=== PATIENT | male | born 1970 | race Caucasian/White ===

== ENCOUNTER 2021-05-24 11:41 | Day surgery (SDC) | payer BC ==
[~2021-05-24] VITALS: Ht 185.4 cm; Wt 104.6 kg
[~2021-05-24 11:41] MED LIST: ATOR20 PO; Fluocinonide15 GM TOP; IBUP200; LEVSOD75 PO; MULTI-VITAMIN1 EAC2 PO; Viagra100 MG PO; ZYRTEC10 M2 PO
--- NOTE | 2021-05-24 15:31 | NUR ---
Discharge instructions reviewed with patient. Patient verbalizes understanding. Copy given to patient to take home. Discharged via wheelchair to private car for ride home.
--- NOTE | 2021-05-28 14:19 | NUR ---
05/28/21 1419 Dasha Dai VERIFICATIONS: EDIT CHART.
== END 2021-05-24 15:35 | disposition home or self-care (01) ==
LOC: ORSCMMR 11:41
PROVIDERS: Surgery
PROC: 0YU54JZ Supplement Right Inguinal Region with Synthetic Substitute, Percutaneous Endoscopic Approach (ICD-10-PCS; principal; 2021-05-24 13:00)
PROC: 8E0W4CZ Robotic Assisted Procedure of Trunk Region, Percutaneous Endoscopic Approach (ICD-10-PCS; principal; 2021-05-24 13:00)
DX: K40.90 Unilateral inguinal hernia, without obstruction or gangrene, not specified as recurrent (principal); K21.9 Gastro-esophageal reflux disease without esophagitis; E03.9 Hypothyroidism, unspecified; E78.5 Hyperlipidemia, unspecified; Z79.899 Other long term (current) drug therapy
CPT/HCPCS: 49650; S2900; A9270; J0690; J1100; J1885; J2250; J2405; J2704; J3010; J7120

== ENCOUNTER 2021-07-19 11:37 | Day surgery (SDC) | payer BC ==
[~2021-07-19] VITALS: Ht 185.4 cm; Wt 102.8 kg
== END 2021-07-19 14:25 | disposition home or self-care (01) ==
LOC: ORSCSDS 11:37
PROVIDERS: Internal Medicine Gastroenterology
PROC: 0DBH8ZX Excision of Cecum, Via Natural or Artificial Opening Endoscopic, Diagnostic (ICD-10-PCS; principal; 2021-07-19 13:00)
DX: Z12.11 Encounter for screening for malignant neoplasm of colon (principal); K52.9 Noninfective gastroenteritis and colitis, unspecified; Z79.899 Other long term (current) drug therapy
CPT/HCPCS: 88305; J2704; J7120

== ENCOUNTER 2023-10-02 11:43 | Day surgery (SDC) | payer BC ==
[~2023-10-02] VITALS: Ht 185.4 cm; Wt 100.3 kg
[~2023-10-02 11:43] MED LIST changes: +Lactated Ringer's 1,000 ML IV ONE; +propofoL 50 ML IV ONE
[2023-10-02] MEDS ORDERED: FOLI1 (11:59)
[2023-10-02] MEDS ORDERED: MESALAMINE (11:59)
[2023-10-02] MEDS ORDERED: Lactated Ringer's 1,000 ML IV ONE (13:00)
[2023-10-02 14:36] VITALS: BP 121/84
== END 2023-10-02 14:40 | disposition home or self-care (01) ==
LOC: ORSCSDS 11:43
PROVIDERS: Internal Medicine Gastroenterology
PROC: 0DBN8ZX Excision of Sigmoid Colon, Via Natural or Artificial Opening Endoscopic, Diagnostic (ICD-10-PCS; principal; 2023-10-02 13:00)
PROC: 0DBP8ZX Excision of Rectum, Via Natural or Artificial Opening Endoscopic, Diagnostic (ICD-10-PCS; principal; 2023-10-02 13:00)
PROC: 0DBK8ZX Excision of Ascending Colon, Via Natural or Artificial Opening Endoscopic, Diagnostic (ICD-10-PCS; principal; 2023-10-02 13:00)
PROC: 0DBB8ZX Excision of Ileum, Via Natural or Artificial Opening Endoscopic, Diagnostic (ICD-10-PCS; principal; 2023-10-02 13:00)
PROC: 0DBL8ZX Excision of Transverse Colon, Via Natural or Artificial Opening Endoscopic, Diagnostic (ICD-10-PCS; principal; 2023-10-02 13:00)
PROC: 0DBH8ZX Excision of Cecum, Via Natural or Artificial Opening Endoscopic, Diagnostic (ICD-10-PCS; principal; 2023-10-02 13:00)
DX: K52.3 Indeterminate colitis (principal); Z72.0 Tobacco use; Z79.899 Other long term (current) drug therapy
CPT/HCPCS: 88305; J2704; J7120